=== PATIENT | male | born 1950 | race Two or more races ===

== ENCOUNTER 2020-02-23 07:00 | Day surgery (SDC) | payer OTHER ==
[~2020-02-23 07:00] MED LIST: KETOROLAC TROMETHAMINE 0.45% 4 DROP/0.4 ML DROPERETTE OS PRN
[2020-02-23] MEDS ORDERED: ONDANSETRON HCL INJ/PF 4 MG/2 ML SDV ONE (07:07)
[2020-02-23] MEDS ORDERED: FENTANYL CITRATE INJ/PF 100 MCG/2 ML AMPUL ONE (07:08)
[2020-02-23] MEDS ORDERED: MIDAZOLAM 2 MG/2 ML INJ ONE (07:08)
[2020-02-23] MEDS: TROPICAMIDE 1% OPH SOLN 15 ML OS PRN ×3 (07:47→07:57)
[2020-02-23] MEDS: CYCLOPENTOLATE 0.2%/PHENYLEPHRINE 1% OPH SOLN 2 ML OS PRN ×3 (07:47→07:57)
[2020-02-23] MEDS: TETRACAINE HCL 0.5% OPH SOLN 4 ML OS PRN ×3 (07:47→08:12)
[2020-02-23] MEDS: BESIFLOXACIN HCL 0.6% OPH SUSP 5 ML BOTTLE OS PRN ×4 (07:47→08:30)
[2020-02-23] MEDS: LIDOCAINE 1%/PHENYLEPHRINE 1.5% 1 ML VIAL ONE ×2 (08:21)
[2020-02-23] MEDS: CHONDR SU A NA/HYALUR INTRAOC KIT (SURGICARE) ONE ×2 (08:21)
[2020-02-23] MEDS: EPINEPHRINE INJ/PF 1 MG/1 ML AMPULE ONE ×2 (08:21)
[2020-02-23] MEDS: DORZOLAMIDE HCL 2%/TIMOLOL MALEAT 0.5% OPH SOLN 10 ML OS PRN ×2 (08:30)
--- NOTE | 2020-02-23 08:40 | Operative Report ---
Operative Report-[facility] Operative Report: DATE OF SURGERY: February 23, 2020 PREOPERATIVE DIAGNOSIS: NUCLEAR CATARACT, LEFT EYE. POSTOPERATIVE DIAGNOSIS: NUCLEAR CATARACT, LEFT EYE. PROCEDURE PERFORMED: PHACOEMULSIFICATION WITH POSTERIOR CHAMBER INTRAOCULAR LENS IMPLANT, LEFT EYE. SURGEON: Juan F Iqbal DO MEDICATIONS AND ANESTHESIA: Versed: IV Versed Tetracaine drops: 1 to 2 drops given as needed COMPLICATION: None INDICATIONS FOR SURGERY: Medical necessity: Best corrected visual acuity worse than 20/40 secondary to cataracts with impairment of ability to carry out needs or desired activities, blurred vision, visual distortion, reduced contrast sensitivity and/or glare with association functional impairment and supporting documentation/testing, and cataracts causing symptomatic impairment of visual functions not corrected with tolerable changes in glasses or contact lenses interfering with activities of daily life. PROCEDURE: Consent: The risks, benefits and alternatives of this procedures was discussed with the patient. The patient read and signed the consent forms, was identified and was seated in the exam chair. IOL: MX 60 E 20.0 IOL Diopters: Phacoemulsification with posterior chamber intraocular lens implant: The face was prepped with 5% povidone iodine solution, and a few drops of 5% povidone iodine solution was instilled into the inferior fornix. A non-fenestrated drape was placed over the eye and the lids were parted with the speculum. A paracentesis was made with a 15 degree blade, and 1% lidocaine MPF followed by viscoelastic was injected into the anterior chamber. A 2.4 mm metal micro- keratome was used to create a temporal clear corneal incision. A circular anterior capsulorrhexis was created, followed by hydro-dissection and hydro- delineation. The phacoemulsification hand piece was inserted and the nucleus was removed with the Phaco chop technique. The irrigation-aspiration hand piece was used to remove the residual cortex, and vacuum the posterior capsule. The capsular bag was inflated and viscoelastic and the above-mentioned IOL was injected into the eye with care to insert both leaning and trailing haptics in the capsular bag. The irrigation/aspiration hand piece was reinserted to remove residual viscoelastic from the capsular bag and anterior chamber. The corneal incision was hydrated, and anterior chamber was inflated with sterile BSS via the paracentesis site, and found to be watertight. Postop medication:1 drop of prednisolone into operative by followed by 1 drop of Cosopt into operative eye followed by 1 drop of Besivance intraoperative by Other:
== END 2020-02-23 09:00 | disposition home or self-care (01) ==
LOC: SC 07:00
PROVIDERS: ATTEND Ophthalmology
DX: H25.12 Age-related nuclear cataract, left eye (principal); I10 Essential (primary) hypertension; I25.2 Old myocardial infarction; N40.0 Benign prostatic hyperplasia without lower urinary tract symptoms; Z79.82 Long term (current) use of aspirin; J45.909 Unspecified asthma, uncomplicated
CPT/HCPCS: 66984; V2632; J2250; J3490 ×2; J0171; J3010; J2405; 142

== ENCOUNTER 2020-03-15 12:13 | Day surgery (SDC) | payer OTHER ==
[~2020-03-15 12:13] MED LIST changes: +KETOROLAC TROMETHAMINE 0.45% 4 DROP/0.4 ML DROPERETTE OD PRN; -KETOROLAC TROMETHAMINE 0.45% 4 DROP/0.4 ML DROPERETTE OS PRN
[2020-03-15] MEDS: TETRACAINE HCL 0.5% OPH SOLN 4 ML OD PRN ×4 (13:21→14:01)
[2020-03-15] MEDS: TROPICAMIDE 1% OPH SOLN 15 ML OD PRN ×3 (13:21→13:46)
[2020-03-15] MEDS: BESIFLOXACIN HCL 0.6% OPH SUSP 5 ML BOTTLE OD PRN ×4 (13:21→14:21)
[2020-03-15] MEDS: CYCLOPENTOLATE 0.2%/PHENYLEPHRINE 1% OPH SOLN 2 ML OD PRN ×3 (13:21→13:46)
[2020-03-15] MEDS ORDERED: MIDAZOLAM 2 MG/2 ML INJ ONE (13:39)
[2020-03-15] MEDS: EPINEPHRINE INJ/PF 1 MG/1 ML AMPULE ONE ×2 (14:10)
[2020-03-15] MEDS: LIDOCAINE 1%/PHENYLEPHRINE 1.5% 1 ML VIAL ONE ×2 (14:10)
[2020-03-15] MEDS: CHONDR SU A NA/HYALUR INTRAOC KIT (SURGICARE) ONE ×2 (14:10)
[2020-03-15] MEDS: DORZOLAMIDE HCL 2%/TIMOLOL MALEAT 0.5% OPH SOLN 10 ML OD PRN ×2 (14:21)
--- NOTE | 2020-03-15 15:52 | Operative Report ---
Operative Report-[facility] Operative Report: DATE OF SURGERY: March 15, 2020 PREOPERATIVE DIAGNOSIS: NUCLEAR CATARACT, RIGHT EYE. POSTOPERATIVE DIAGNOSIS: NUCLEAR CATARACT, RIGHT EYE. PROCEDURE PERFORMED: PHACOEMULSIFICATION WITH POSTERIOR CHAMBER INTRAOCULAR LENS IMPLANT, RIGHT EYE. SURGEON: Juan F Iqbal DO MEDICATIONS AND ANESTHESIA: Versed: IV Versed Tetracaine drops: 1 to 2 drops given as needed COMPLICATION: None INDICATIONS FOR SURGERY: Medical necessity: Best corrected visual acuity worse than 20/40 secondary to cataracts with impairment of ability to carry out needs or desired activities, blurred vision, visual distortion, reduced contrast sensitivity and/or glare with association functional impairment and supporting documentation/testing, and cataracts causing symptomatic impairment of visual functions not corrected with tolerable changes in glasses or contact lenses interfering with activities of daily life. PROCEDURE: Consent: The risks, benefits and alternatives of this procedures was discussed with the patient. The patient read and signed the consent forms, was identified and was seated in the exam chair. IOL: MX 60 E 19.5 IOL Diopters: Phacoemulsification with posterior chamber intraocular lens implant: The face was prepped with 5% povidone iodine solution, and a few drops of 5% povidone iodine solution was instilled into the inferior fornix. A non-fenestrated drape was placed over the eye and the lids were parted with the speculum. A paracentesis was made with a 15 degree blade, and 1% lidocaine MPF followed by viscoelastic was injected into the anterior chamber. A 2.4 mm metal micro- keratome was used to create a temporal clear corneal incision. A circular anterior capsulorrhexis was created, followed by hydro-dissection and hydro- delineation. The phacoemulsification hand piece was inserted and the nucleus was removed with the Phaco chop technique. The irrigation-aspiration hand piece was used to remove the residual cortex, and vacuum the posterior capsule. The capsular bag was inflated and viscoelastic and the above-mentioned IOL was injected into the eye with care to insert both leaning and trailing haptics in the capsular bag. The irrigation/aspiration hand piece was reinserted to remove residual viscoelastic from the capsular bag and anterior chamber. The corneal incision was hydrated, and anterior chamber was inflated with sterile BSS via the paracentesis site, and found to be watertight. Postop medication: 1 drop of prednisolone into operative by followed by 1 drop of Cosopt into operative eye followed by 1 drop of Besivance intraoperative by other:
== END 2020-03-15 14:53 ==
LOC: SC 12:13
PROVIDERS: ATTEND Ophthalmology
DX: H25.11 Age-related nuclear cataract, right eye (principal); Z98.42 Cataract extraction status, left eye; I10 Essential (primary) hypertension; J45.909 Unspecified asthma, uncomplicated
CPT/HCPCS: 66984; V2632; J2250; J3490 ×2; J0171